=== PATIENT | male | born 1955 | race Caucasian/White ===

== ENCOUNTER → 2021-01-24 | Day surgery (SDC) | payer MEDICARE ==
[~2021-01-24] MED LIST: ASACOL HD800 MG PO; AVAPRO300 MG PO; BENTYL 10 MG CA10 MG PO; BUDESONIDE0.25 MG/2 INH; CARVEDILOL12.5 MG PO; CRESTOR40 MG PO; DEPAKOTE ER500 M1 PO; FOLIC ACID1 MG PO; FUROSEMIDE 20 M20 MG PO; KLONOPIN0.5 MG PO; NORVASC5 MG PO; OXYCODONE HCL 55 MG PO; PRADAXA150 MG PO; SERTRALINE HCL100 MG PO; SPIRONOLACTONE25 MG PO; ZOFRAN4 MG PO
[2021-01-24 12:41] LABS: HEMATOCRIT 33.9 % (42.0-52.0); HEMOGLOBIN 11.6 gm/dL (14.0-18.0); MCH 30.2 pg (26.0-34.0); MCHC 34.2 g/dL (28.0-37.0); MCV 88.4 fL (80.0-100.0); MPV 6.4 fl. (7.2-11.1); RBC 3.83 mil/uL (4.50-6.00); RDW-CV 15.3 % (10.5-14.5)
[2021-01-24 12:48] LABS: CALCIUM 8.8 mg/dL (8.5-10.1); CREATININE 1.2 mg/dL (0.6-1.3); POTASSIUM 4.6 mmol/L (3.5-5.1)
--- NOTE | 2021-01-30 12:07 | PATH ---
[address] [address] PATHOLOGY RPT PROCEDURE Name: MIKA PAN Room: [facility].#: [id number] Admission: 01/24/21 Date of : 53 Discharge: Report #: [id number] Path Case #: [id number] [facility] Accession Number: [id number] . 01 Material submitted: . gallbladder - GALLBLADDER WITH CONTENTS . 01 Clinical history: . LAPAROSCOPIC CHOLECYSTECTOMY BILIARY DYSKENISIA . 02 Diagnosis: Gallbladder with contents: - Chronic cholecystitis. . (NESTOR:mmrobin; 01/28/2021) [facility] 01/28/2021 1631 Local . 02 Electronically signed: . Markel Vazquez MD, Pathologist NPI- [id number] . 01 Gross description: . Fixative: Formalin Labeled: Gallbladder with contents Specimen received: Previously opened cholecystectomy Dimensions: 8.6 x 4.0 x 1.8 cm Serosa: Chambers-yellow and smooth with multiple full-thickness defects in the cystic neck ranging from 0.7-1.2 cm Lymph node: Not present Mucosa: Yellow-green and velvety Average wall thickness: 0.1-0.2 cm Calculi: None identified within the gallbladder or container Abnormalities: None identified A1- Editor body, fundus, and the cystic duct margin. ([facility]; 01/26/2021) [facility] 01/26/2021 1145 Local . 02 Pathologist provided ICD-10: K81.1 . 02 CPT . 363719 Specimen Comment: A courtesy copy of this report has been sent to [phone], [phone] Specimen Comment: [phone], Specimen Comment: Report sent to , DR NOLAN / DR WONG Specimen Comment: A duplicate report has been [place] [address] PATHOLOGY RPT PROCEDURE Name: MIKA PAN Room: [facility]#: [id number] Admission: 01/24/21 Date of : 53 Discharge: Report #: [id number] Path Case #: [id number] updates. Performed at: 01 [facility] [place] [address], [place], [place] [id number] MD Kyaw Gonzalez MD Phone: [phone] Performed at: 02 [facility] [address], [place], [place] [id number] MD Markel Vazquez MD Phone: [phone]
--- NOTE | 2021-01-31 21:10 | OP ---
[facility] [address] [place] [address] OPERATIVE REPORT Name: MIKA PAN Room: [facility]..#: [id number] Admission: 01/24/21 Attend Phys: Lc Ames Discharge: Date of : 53 Report #: [id number] THIS REPORT FOR: cc: Donald Iglesias MD, Richard K. MD Gazzetta, Joshua D. DO ~ DATE OF SURGERY: 01/24/2021 SURGEON: Martin De Jesus DO WHEEL INSTALLER: None. PREOPERATIVE DIAGNOSIS: Biliary dyskinesia. POSTOPERATIVE DIAGNOSIS: Biliary dyskinesia. PROCEDURE PERFORMED: Laparoscopic cholecystectomy. INDICATION: The patient presented to the clinic with complaints of postprandial discomfort. History of present illness and physical exam is consistent with possible biliary dyskinesia. I had a long discussion of the risks and benefits of surgery and he and his elected to proceed with surgery. Risks include bleeding, infection and damage to nearby structures including the bowel and bile duct. OPERATIVE DESCRIPTION: The patient was taken to the operating theater and placed in supine position. Bilateral SCDs were placed and preoperative antibiotics were given. General anesthesia was induced without complication. The patient's abdomen was prepped and draped in the standard sterile fashion. A timeout was performed and all were in agreement. We began by making an infraumbilical curvilinear incision using an 11 blade scalpel. Dissection was carried down to the midline fascia using S retractors and electrocautery. Once the midline fascia was appreciated, it was scored with electrocautery and elevated to the surgical field using Christen clamps. The abdomen was entered bluntly using a hemostat. 0 Vicryl stay sutures were placed on either edge of the fascia and a Franck trocar was introduced. Pneumoperitoneum was established. The patient was placed in a head up, left side down position. A 5-mm subxiphoid trocar was placed under direct visualization, 2 further 5 mm trocars were placed in the right upper quadrant under direct visualization. The fundus of the gallbladder was grasped using the medical technician assistant port and elevated towards the anterior abdominal wall. There were some omental adhesions to Rohit's pouch. These were bluntly swept down using a suction insights analyst device. There was significant amount of inflammation at the area of Rohit's pouch and the gallbladder had a very thin attenuated wall. The Rohit's pouch was grasped and taken medially and cephalad. [place] [address] OPERATIVE REPORT Name: MIKA PAN Room: [facility]#: [id number] Admission: 01/24/21 Attend Phys: Lc Ames Discharge: Date of : 53 Report #: [id number] easily with the traction spilling bile. this was suctioned out of the abdomen. The lateral peritoneum was then scored using electrocautery. Peritoneal incision was carried laterally towards the liver and then over Rohit's pouch along the medial aspect of the gallbladder. Suction insights analyst device was used to sweep the peritoneum down and cleared the hepatocystic triangle from the lateral and medial aspect of the fibrofatty tissue. Cystic duct and cystic artery were skeletonized using a [place] dissector. A critical view of safety was obtained. There were two structures and only two structures entering the gallbladder, the cystic duct and cystic artery. Hepatic plate could be seen through the hepatocystic triangle from the lateral and medial aspect. Next, the cystic duct was clipped 3 times proximally and once distally using an endoclip international guest coordinator. The cystic artery was clipped once proximally and once distally. Both structures were transected using EndoShears. Rohit's pouch was then elevated towards the anterior abdominal wall and the gallbladder was removed from the gallbladder fossa using electrocautery. The gallbladder was then placed within the EndoCatch bag and placed in the side. The right upper quadrant was thoroughly irrigated and suctioned until the effluent ran clear and suctioned dry. The clips were visualized again and were without bile or blood leakage. Next the patient was placed in the neutral position, 5 mm trocars were removed under direct visualization. The midline trocar, EndoCatch bag and gallbladder were removed through the midline. The abdomen was completely desufflated. The midline fascia was closed using 0 Vicryl in [id number] fashion. All skin incisions were closed using a 4-0 Monocryl in an interrupted inverted fashion and dressed with Dermabond. This concluded the procedure. All sponge, needle and instrument counts were correct x 2. ESTIMATED BLOOD LOSS: 10 mL. FINDINGS: Inflammation around Rohit's pouch, thin-walled gallbladder. SPECIMENS: Gallbladder. DRAINS: None. ANESTHESIA: General endotracheal anesthesia. DISPOSITION: The patient was extubated successfully in the operating theater and taken to PACU in stable condition. <ELECTRONICALLY SIGNED> By: Martin De Jesus DO 01/31/212109 1027 [id number] De Jesus DO /nt
== END | disposition home or self-care (01) ==
LOC: M.SUR 09:36
PROVIDERS: ATTEND Surgery
DX: K81.1 Chronic cholecystitis (principal); K66.0 Peritoneal adhesions (postprocedural) (postinfection); Z79.899 Other long term (current) drug therapy; Z98.890 Other specified postprocedural states; Z20.822 Contact with and (suspected) exposure to COVID-19